=== PATIENT | male | born 1955 | race Caucasian/White ===

== ENCOUNTER 2023-04-26 19:46 | Emergency (ER) | payer MEDICAID ==
[~2023-04-26] VITALS: Ht 165.1 cm; Wt 77.1 kg
[2023-04-26 19:50] VITALS: BP 142/87; PULSE 75; RESP 17; TEMP 97.7; O2SAT 96
--- NOTE | 2023-04-26 19:53 | NUR ---
TO LOBBY A/W BED AMBULATORY , NO BLEEDING NOTED AT THIS TIME
--- NOTE | 2023-04-26 22:27 | NUR ---
68 YO F BIB SELF C/O LACERATION AND LEFT SHOULDER PAIN S/P FALL WHILE AT HOME. NO ACTIVE BLEEDING FROM LACERATION SITE. PT ROM IN LEFT SHOULDER INTACT. C/O PAIN 03/27. AXO4. SAFETY MEASURES IN PLACE. CALL LIGHT WITHIN REACH. NKDA PMHX: HTN, DM
[2023-04-26 22:35] VITALS: BP 137/72; PULSE 55; RESP 17; O2SAT 99
--- NOTE | 2023-04-26 23:47 | NUR ---
WOUND TO RIGHT SIDE HEAD IRRIGATED.
--- NOTE | 2023-04-26 23:50 | NUR ---
Dr. Monk examining patient.
--- NOTE | 2023-04-26 23:51 | NUR ---
DR. RUSSELL AT BEDSIDE
[2023-04-26] MEDS ORDERED: BACITRACIN OINT 500 UNITS/GM PKT TP ONE (23:55)
[2023-04-27] MEDS: BACITRACIN OINT 500 UNITS/GM PKT TP ONE (00:20)
--- NOTE | 2023-04-27 00:30 | NUR ---
Patient discharged with v/s stable. Written and verbal after care instructions given and explained. Patient verbalized understanding. Ambulatory with steady gait. All questions addressed prior to discharge. Advised to follow up with PMD.
== END 2023-04-27 00:30 | disposition home or self-care (01) ==
LOC: EDSEX 19:46 → MED 19:46
DX: S01.01XA Laceration without foreign body of scalp, initial encounter (principal); E11.9 Type 2 diabetes mellitus without complications; W01.198A Fall on same level from slipping, tripping and stumbling with subsequent striking against other object, initial encounter; Y93.89 Activity, other specified; Y92.89 Other specified places as the place of occurrence of the external cause; Y99.8 Other external cause status
CPT/HCPCS: 90715; 99282